=== PATIENT | female | born 1950 | race Caucasian/White ===

== ENCOUNTER 2016-05-06 13:42 | Day surgery (SDC) | payer OTHER ==
[~2016-05-06 13:42] MED LIST: ALEVE220 MG PO; DELZICOL400 MG PO; LIPITOR20 MG PO; SYNTHROID75 MCG PO
== END 2016-05-06 15:15 | disposition home or self-care (01) ==
LOC: PAIN 13:42 → SDC 14:30 → PAIN 14:30
PROC: 3E0S3BZ Introduction of Anesthetic Agent into Epidural Space, Percutaneous Approach (ICD-10-PCS; principal; 2016-05-06)
DX: M54.16 Radiculopathy, lumbar region (principal); E03.9 Hypothyroidism, unspecified
CPT/HCPCS: J1100; J2250; J3010

== ENCOUNTER 2016-06-03 10:16 | Day surgery (SDC) | payer OTHER ==
[~2016-06-03] VITALS: Ht 152.4 cm; Wt 52.3 kg
== END 2016-06-03 12:30 | disposition home or self-care (01) ==
LOC: PAIN 10:16 → SDC 10:45 → PAIN 12:30
PROC: 3E0S33Z Introduction of Anti-inflammatory into Epidural Space, Percutaneous Approach (ICD-10-PCS; principal; 2016-06-03)
DX: M54.16 Radiculopathy, lumbar region (principal); F41.9 Anxiety disorder, unspecified; F17.200 Nicotine dependence, unspecified, uncomplicated; M99.83 Other biomechanical lesions of lumbar region; M53.3 Sacrococcygeal disorders, not elsewhere classified; E78.5 Hyperlipidemia, unspecified; E89.0 Postprocedural hypothyroidism; M81.0 Age-related osteoporosis without current pathological fracture; Z88.0 Allergy status to penicillin; Z82.49 Family history of ischemic heart disease and other diseases of the circulatory system; Z83.3 Family history of diabetes mellitus; Z88.1 Allergy status to other antibiotic agents; Z88.2 Allergy status to sulfonamides; Z88.8 Allergy status to other drugs, medicaments and biological substances
CPT/HCPCS: J1100; J2250; J3010